=== PATIENT | female | born 1985 | race Hispanic/Latino ===

== ENCOUNTER 2021-09-30 18:39 | Emergency (ER) | payer BC, OTHER, SELFPAY ==
--- OUTSIDE RECORDS SUMMARY | 2021-09-30 18:41 | XMS REPORT | Continuity of Care Document ---
:1985 Author Organization [facility] t Address [address] [place] [address] Care Team Providers Name Role Phone Lab, Fam Pob I Attending Clinician Unavailable Willie WILKINSON Attending Clinician WILLIE Attending Clinician Unavailable Maile Ty MD Attending Clinician Maile TY Attending Clinician Unavailable Payers Payer Name Policy Type Policy Number Effective Date Expiration Date S ource Problems This patient has no known problems. Allergies, Adverse Reactions, Alerts Allergy Allergy Status Severity Reaction(s) Onset Inactive Treating Comm ents Source Name Type Date Date Clinician NO KNOWN Drug Active [facility] ALLERGIE Class it of [facility] Social History Social Habit Start Date Stop Date Quantity Comments Source Sex Assigned At [birth year] [facility] 00:00:00 00:00:00 [facility] Smoking Status Start Date Stop Date Source Unknown if ever smoked [facility] Medications This patient has no known medications. Procedures This patient has no known procedures. Encounters Start End Encounter Admission Attending Care Care Encounter Source Date/Time Date/Time Type Type Clinicians Facility Department ID 2021-01-08 2021-01-08 Laboratory Lab, [facility] Fam Pob I [facility] [id number]. [id number] [facility] 11:46:22 12:06:22 Only Willie [facility] [id number] [facility] [id number] [place] as Ines [id number] [address] 2021-01-08 2021-01-08 Outpatient [facility] [id number] Univers 11:40:00 11:40:00 [id number] [facility]ly [facility] 2021-01-082021-01-08 Outpatient R WILLIE [facility] [id number] Univers 11:40:00 11:40:00 , MONE barragan [facility] 2020-12-30 2020-12-30 Laboratory Lab, Adc Fam Pob I [facility] 1.2. [id number] Univers 10:03:06 10:23:06 Only [facility] [id number] [facility] [id number] [place] as Professio [id number] [place] [id number] [address] 2020-12-30 2020-12-30 Outpatient R KARSON [facility] [id number] Univers 10:00:00 10:00:00 DILLAN barragan [facility] Results This patient has no known results.
[2021-09-30] MEDS ORDERED: HYDROCODONE/APAP 7.5/325 MG TAB ONE (19:18)
[2021-09-30] MEDS ORDERED: BUPIVACAINE 0.5% PF 10 ML VIAL ONE (19:33)
[2021-09-30] MEDS ORDERED: LIDOCAINE 1% 20 ML MDV ONE (19:33)
[2021-09-30] MEDS ORDERED: ONDANSETRON 4 MG (ODT) TAB ONE (20:10)
--- NOTE | 2021-09-30 21:03 | RAD REPORT ---
EXAM DESCRIPTION: RAD - Foot Right 3 View - 09/30/2021 8:51 pm CLINICAL HISTORY: puncture wound COMPARISON: <Comparisons> FINDINGS: No fracture, dislocation or periosteal reaction. No acute bone or joint finding. No air or foreign body in the soft tissues. IMPRESSION: Negative right foot examination.
[2021-09-30] MEDS ORDERED: TETANUS & DIPHTHERIA TOX,ADULT 0.5 ML VIAL ONE (21:13)
--- NOTE | 2021-09-30 21:26 | EDPHYS ---
Physician Documentation [facility] Name: Adrienne Rey Age: 36 yrs Sex: Female : 1985 Arrival Date: 09/30/2021 Time: 18:39 Bed 11 Private MD: ED Physician Skyler Roy HPI: 09/30 19:15 This 36 yrs old Female presents to ER via Wheelchair with complaints of cp Puncture Wound To Foot - screw. 19:15 The patient presents with a puncture wound, nail through shoe. The complaints affect cp the right foot. Context: resulted from the patient stepping on a nail, while wearing shoes, must have assistance, from family. Onset: The symptoms/episode began/occurred just prior to arrival. Associated signs and symptoms: The patient has no apparent associated signs or symptoms. Severity of symptoms: in the emergency department the symptoms puncture wound with retained nail through shoe to plantar surface of right foot. Historical: - Allergies: 18:44 No Known Allergies; ab2 - PMHx: 18:44 None; ab2 - Immunization history:: Adult Immunizations unknown. - Social history:: Smoking status: Patient denies any tobacco usage or history of. ROS: 19:20 Constitutional: Negative for body aches, chills, fever, poor PO intake. cp 19:20 Eyes: Negative for injury, pain, redness, and discharge. cp 19:20 Neck: Negative for pain with movement, pain at rest, stiffness. 19:20 Cardiovascular: Negative for chest pain, edema, palpitations. 19:20 Respiratory: Negative for cough, shortness of breath, wheezing. 19:20 Abdomen/GI: Negative for abdominal pain, nausea, vomiting, and diarrhea. 19:20 Back: Negative for pain at rest, pain with movement. 19:20 MS/extremity: Positive for pain, puncture, of the ball of right foot. 19:20 Neuro: Negative for altered mental status, headache, weakness. 19:20 All other systems are negative. Exam: 19:25 Constitutional: The patient appears in no acute distress, alert, awake, non-toxic, well cp developed, well nourished, in obvious pain, uncomfortable. 19:25 Head/Face: Normocephalic, atraumatic. cp 19:25 Cardiovascular: Rate: normal. 19:25 Respiratory: the patient does not display signs of respiratory distress, Respirations: normal, no use of accessory muscles, no retractions, labored breathing, is not present. 19:25 Abdomen/GI: Exam negative for discomfort, distension, guarding, Inspection: abdomen appears normal. 19:25 Back: pain, is absent, ROM is normal. 19:25 Musculoskeletal/extremity: Extremities: grossly normal except: noted in the ball of right foot plantar surface area proximal to web space of second and third toes: pain, puncture, swelling, tenderness, head of nail protruding through sole of shoe, Pulses: noted to be 2+ in the right dorsalis pedis artery, the right foot Severe pain noted. 19:25 Neuro: Orientation: to person, place \T\ time. Mentation: is normal. Vital Signs: 18:43 BP 124 / 94; Pulse 91; Resp 17; Temp 97.7; Pulse Ox 100% ; Weight 81.65 kg; Height 5 ab2 ft. 7 in. (170.18 cm); Pain 10/10; 18:43 Body Mass Index 28.19 (81.65 kg, 170.18 cm) ab2 Procedures: 21:30 Foreign Body Removal: a nail, from the ball of right foot plantar surface area proximal cp to web space of right second and third toes, by manually after area anesthetized with 6 ccs of 50/50 mixture 1% lidocaine w/o epi and 0.5% marcaine. Dressinx4s were used to dress the wound, tape was employed, The patient tolerated the removal well, wound enlarged with #11 blade, irrigated with 500 ccs NS and then dressed. MDM: 18:56 Patient medically screened. cp 20:00 Differential diagnosis: fracture, foreign body, penetrating trauma. cp 21:25 Data reviewed: vital signs, nurses notes, radiologic studies, plain films. cp 21:25 Test interpretation: by ED physician or midlevel provider: plain radiologic studies. cp Counseling: I had a detailed discussion with the patient and/or guardian regarding: the historical points, exam findings, and any diagnostic results supporting the discharge/admit diagnosis, radiology results, the need for outpatient follow up, a family practitioner, to return to the emergency department if symptoms worsen or persist or if there are any questions or concerns that arise at home. Response to treatment: the patient's symptoms have markedly improved after treatment, VSS. Pain improved. Nail removed and wound irrigated. Will discharge to home for continued monitoring. Patient with strict return precautions worsening pain, worsening swelling/erythema, discharge from wound. 09/30 19:54 Order name: XRAY Foot RIGHT 3 View; Complete Time: 21:24 cp 09/30 20:38 Order name: Wound Care: please clean and irrigate wound; Complete Time: 21:15 cp 09/30 21:24 Order name: Wound dressing; Complete Time: 21:44 cp 09/30 21:24 Order name: Crutches; Complete Time: 21:44 cp Administered Medications: 19:14 Drug: Hydrocodone-Acetaminophen (7.5 mg-325 mg) 1 tabs Route: PO; jb4 20:40 Follow up: Response: No adverse reaction; Marked relief of symptoms jb4 19:53 Drug: Lidocaine (1 %) 10 ml {Note: Administered by ER Provider.} Volume: 20 ml; Route: jb4 Infiltration; 19:54 Drug: Marcaine (bupivacaine) (0.5 %) 10 ml {Note: Administered by ER Provider.} Volume: jb4 10 ml; Route: Infiltration; 20:07 Drug: Zofran (Ondansetron) 4 mg Route: PO; jb4 20:40 Follow up: Response: No adverse reaction; Marked relief of symptoms jb4 21:14 Drug: Tetanus-Diphtheria Toxoid Adult 0.5 ml {Frit Burner: [employer]. Exp: jb4 08/12/2023. Lot #: [id number]. } Route: IM; Site: right deltoid; 21:26 Follow up: Response: No adverse reaction jb4 21:44 Drug: LevaQUIN (levofloxacin) 500 mg Route: PO; jb4 21:44 Follow up: Response: Medication administered at discharge. jb4 21:44 Drug: Doxycycline 100 mg Route: PO; jb4 21:44 Follow up: Response: Medication administered at discharge. jb4 Disposition Summary: 09/30/21 21:26 Discharge Ordered Location: Home cp Problem: new cp Symptoms: have improved cp Condition: Stable cp Diagnosis - Puncture wound with foreign body, right foot - nail cp Followup: cp - With: Private Physician - When: 2 - 3 days - Reason: Wound Recheck Discharge Instructions: - Discharge Summary Sheet cp - Puncture Wound cp Forms: - Medication Reconciliation Form cp - Thank You Letter cp - Antibiotic Education cp - Prescription Opioid Use cp Prescriptions: - Doxycycline Hyclate 100 mg Oral Tablet - take 1 tablet by ORAL route every 12 hours; 20 tablet; Refills: 0, Product cp Selection Permitted - Tramadol 50 mg Oral Tablet - take 1 tablet by ORAL route every 8 hours as needed; 12 tablet; Refills: 0, cp Product Selection Permitted - levofloxacin 500 mg Oral Tablet - take 1 tablet by ORAL route once daily for 8-10 days start taking evening of cp 10-01-2021; 9 tablet; Refills: 0, Product Selection Permitted Signatures: Dispatcher [employer] EDMS Chino Garcia PA PA cp Andre Mejias, RN RN jb4 Bernard Connors2 Corrections: (The following items were deleted from the chart) 21:44 21:24 Ortho shoe ordered. cp jb4
--- NOTE | 2021-09-30 21:26 | ER ---
Nurse's Notes [facility] Name: Adrienne Rey Age: 36 yrs Sex: Female : 1985 Arrival Date: 09/30/2021 Time: 18:39 Bed 11 Private MD: Diagnosis: Puncture wound with foreign body, right foot-nail Presentation: 09/30 18:43 Chief complaint: Patient states: "I was walking at my parents and stepped on a screw ab2 and it went through my shoe into my foot." Pt has screw in right foot. Coronavirus screen: Vaccine status: Patient reports being unvaccinated. Client denies travel out of the [place] in the last 14 days. At this time, the client does not indicate any symptoms associated with coronavirus-19. Ebola Screen: Patient negative for fever greater than or equal to 101.5 degrees Fahrenheit, and additional compatible Ebola Virus Disease symptoms Patient denies exposure to infectious person. Patient denies travel to an Ebola-affected area in the 21 days before illness onset. No symptoms or risks identified at this time. Initial Sepsis Screen: Does the patient meet any 2 criteria? No. Patient's initial sepsis screen is negative. Does the patient have a suspected source of infection? No. Patient's initial sepsis screen is negative. Risk Assessment: Do you want to hurt yourself or someone else? Patient reports no desire to harm self or others. Onset of symptoms is unknown. 18:43 Method Of Arrival: Wheelchair ab2 18:43 Acuity: JAYESH 4 ab2 Historical: - Allergies: 18:44 No Known Allergies; ab2 - PMHx: 18:44 None; ab2 - Immunization history:: Adult Immunizations unknown. - Social history:: Smoking status: Patient denies any tobacco usage or history of. Screenin:52 Abuse screen: Denies threats or abuse. Nutritional screening: No deficits noted. jb4 Tuberculosis screening: No symptoms or risk factors identified. Fall Risk None identified. Assessment: 19:00 General: Appears in no apparent distress. uncomfortable, Behavior is calm, cooperative, jb4 appropriate for age. Pain: Complains of pain in right foot Pain does not radiate. Pain currently is 8 out of 10 on a pain scale. Neuro: Level of Consciousness is awake, alert, obeys commands, Oriented to person, place, time, situation. Cardiovascular: Patient's skin is warm and dry. Respiratory: Airway is patent Respiratory effort is even, unlabored, Respiratory pattern is regular, symmetrical. GI: No signs and/or symptoms were reported involving the gastrointestinal system. : No signs and/or symptoms were reported regarding the genitourinary system. EENT: No signs and/or symptoms were reported regarding the EENT system. Derm: Skin is intact, Skin is pink, warm \\T\\ dry. Musculoskeletal: Circulation, motion, and sensation intact. Range of motion: intact in all extremities. Injury Description: Foreign body is located ball of right foot is nail. 21:04 Reassessment: Patient appears in no apparent distress at this time. Patient and/or jb4 family updated on plan of care and expected duration. Pain level reassessed. Patient is alert, oriented x 3, equal unlabored respirations, skin warm/dry/pink. 21:52 Reassessment: Patient appears in no apparent distress at this time. Patient and/or jb4 family updated on plan of care and expected duration. Pain level reassessed. Patient is alert, oriented x 3, equal unlabored respirations, skin warm/dry/pink. Vital Signs: 18:43 BP 124 / 94; Pulse 91; Resp 17; Temp 97.7; Pulse Ox 100% ; Weight 81.65 kg; Height 5 ab2 ft. 7 in. (170.18 cm); Pain 10/10; 18:43 Body Mass Index 28.19 (81.65 kg, 170.18 cm) ab2 ED Course: 18:39 Patient arrived in ED. as 18:44 Triage completed. ab2 18:45 Arm band placed on right wrist. ab2 18:56 Chino Garcia PA is PHCP. cp 18:56 Skyler Roy MD is Attending Physician. cp 19:12 Bernard Connors is Primary Nurse. ab2 20:52 XRAY Foot RIGHT 3 View In Process Unspecified. EDMS 21:52 Patient has correct armband on for positive identification. Bed in low position. Call jb4 light in reach. Side rails up X 1. 21:52 No provider procedures requiring assistance completed. Patient did not have IV access jb4 during this emergency room visit. Administered Medications: 19:14 Drug: Hydrocodone-Acetaminophen (7.5 mg-325 mg) 1 tabs Route: PO; jb4 20:40 Follow up: Response: No adverse reaction; Marked relief of symptoms jb4 19:53 Drug: Lidocaine (1 %) 10 ml {Note: Administered by ER Provider.} Volume: 20 ml; Route: jb4 Infiltration; 19:54 Drug: Marcaine (bupivacaine) (0.5 %) 10 ml {Note: Administered by ER Provider.} Volume: jb4 10 ml; Route: Infiltration; 20:07 Drug: Zofran (Ondansetron) 4 mg Route: PO; jb4 20:40 Follow up: Response: No adverse reaction; Marked relief of symptoms jb4 21:14 Drug: Tetanus-Diphtheria Toxoid Adult 0.5 ml {Shoe Packer: [employer]. Exp: jb4 08/12/2023. Lot #: [id number]. } Route: IM; Site: right deltoid; 21:26 Follow up: Response: No adverse reaction jb4 21:44 Drug: LevaQUIN (levofloxacin) 500 mg Route: PO; jb4 21:44 Follow up: Response: Medication administered at discharge. jb4 21:44 Drug: Doxycycline 100 mg Route: PO; jb4 21:44 Follow up: Response: Medication administered at discharge. jb4 Outcome: 21:26 Discharge ordered by MD. cp 21:52 Discharged to home via wheelchair, with family. jb4 21:52 Condition: stable 21:52 Discharge instructions given to patient, family, Instructed on discharge instructions, follow up and referral plans. no drinking with medication, medication usage, wound care, Demonstrated understanding of instructions, follow-up care, medications, wound care, Prescriptions given X 3. 21:54 Patient left the ED. jb4 Signatures: Dispatcher [employer] EDMS Terri Todd Corey, PA PA cp Bryson, James, RN RN jb4 Bernard Connors
[2021-09-30] MEDS ORDERED: DOXYCYCLINE 100 MG CAP PO ONE (21:39)
[2021-09-30] MEDS ORDERED: levoFLOXacin 500 MG TAB ONE (21:42)
[2021-09-30 22:33] VITALS: BP 124/94; TEMP 97.7; O2SAT 100
== END 2021-09-30 21:54 | disposition home or self-care (01) ==
LOC: ER 18:39
DX: S91.341A Puncture wound with foreign body, right foot, initial encounter (principal); W45.0XXA Nail entering through skin, initial encounter; Y93.01 Activity, walking, marching and hiking; Z23 Encounter for immunization
CPT/HCPCS: 90471; 90714; 99283